=== PATIENT | female | born 1950 | race Caucasian/White ===

== ENCOUNTER 2023-01-14 22:27 | Emergency (ER) | payer MEDICARE, OTHER, SELFPAY ==
--- NOTE | ~2023-01-14 | XR_ITS ---
EXAMINATION: XR CHEST CLINICAL INFORMATION: Chest pain COMPARISON: None available. TECHNIQUE: Frontal view of the chest was obtained. FINDINGS: The heart and pulmonary vessels appear normal. No infiltrates, effusions or edema is seen. There is biconvex thoracolumbar scoliosis present. Degenerative changes are present in both shoulders. XR/XR chest 1V IMPRESSION: No acute intrathoracic disease.
--- NOTE | 2023-01-14 22:31 | ECG_ITS ---
Test Reason : chest pain Blood Pressure : / mmHG Vent. Rate : 051 BPM Atrial Rate : 051 BPM P-R Int : 146 ms QRS Dur : 076 ms QT Int : 416 ms P-R-T Axes : 081 000 039 degrees QTc Int : 383 ms Sinus bradycardia Otherwise normal ECG No previous ECGs available Referred By: Generic ED Physician Electronically Signed By:MYLA CARLSON
[2023-01-14 22:43] VITALS: BP 163/81; PULSE 51; RESP 16; TEMP 36.6; O2SAT 99; BMI 131.6
[2023-01-14 23:24] LABS: Hematocrit 38.4 % (37.0-47.0); Hemoglobin 12.9 g/dl (12.0-16.0); Mean Corpuscular HGB Conc 33.6 g/dl (31.0-35.0); Mean Corpuscular Hemoglobin 32.3 pg (27.0-33.0); Mean Platelet Volume 9.5 fL (9.4-12.3); Platelet Count 249 X10*3/uL (160-400); Red Cell Distribution Width 11.7 % (11.0-16.0); White Blood Count 3.9 X10*3/uL (4.8-10.8)
[2023-01-14 23:33] LABS: D Dimer High Sensitivity 185 NG/ML
[2023-01-14 23:40] LABS: Anion Gap 13 (12-20); Blood Urea Nitrogen 10 mg/dL (9-16); Calcium 9.7 mg/dL (8.4-10.2); Carbon Dioxide 28 mmol/L (22-29); Chloride 103 mmol/L (96-108); Creatinine Clr Calc Pharmacy -6.5; Estimated Glomerular Filt Rate > 60; Glucose Random 85 mg/dL (60-115); Magnesium 2.3 mg/dL (1.6-2.6); Potassium 4.3 mmol/L (3.3-5.1); Sodium 140 mmol/L (135-145)
[2023-01-14 23:43] LABS: COVID-19 Test Negative (Negative); IDNOW Serial# 08D9AD1C; IDNOW Serial# BCCEAD1C; Influenza A Negative (Negative); Influenza B2 Negative (Negative)
[2023-01-14 23:45] LABS: Troponin-I High Sensitivity 4.4 ng/L (<3.5-17.0)
[2023-01-14 23:48] VITALS: BP 139/69; PULSE 51; RESP 12; TEMP 36.3; O2SAT 99
--- NOTE | 2023-01-14 23:57 | ED_ITS ---
HPI - Chest Pain General Chief Complaint: Chest Pain Stated Complaint: ref. 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 been having left arm pain for some time with tingling sensation today she went to physical therapy for the 1st time had stretching exercises when she came back notice more tingling on the left arm , no weakness no headache no other deficits no recent trauma or fall Related Data Allergies Allergy/AdvReac Type Severity Reaction Status Date / Time codeine Allergy Unknown Verified 01/14/23 22:42 naproxen Allergy Unknown Verified 01/14/23 22:42 Penicillins Allergy Unknown Verified 01/14/23 22:42 shellfish derived Allergy Unknown Verified 01/14/23 22:42 Review of Systems Review of Systems: Yes all other systems are reviewed and are negative [facility] Social History Social History Advance Directives: No Advance Directives Information Provided: Yes Physical Exam Vital Signs: Vital Signs: Last Vital Signs Temp 97.4 F 01/14/23 23:48 Pulse 51 01/14/23 23:48 Resp 12 01/14/23 23:48 BP 139/69 01/14/23 23:48 Pulse Ox 99 01/14/23 23:48 O2 Del Method Room Air 01/14/23 23:48 BMI result Body Mass Index 131.6 Appearance: Alert. Oriented X3. No acute distress. ENT: Pharynx normal. Oral Mucosa moist Neck: Normal inspection. Neck supple. Diffuse tenderness inmid spine area CVS: Normal heart rate and rhythm. Pulses normal. Respiratory: No respiratory distress. Equal air entry bilateral, no wheezing/rales/rhonchi Abdomen: Soft and nontender. Bowel sounds are present, no mass palpable, no CVA tenderness Skin: Skin warm and dry. Normal skin color. Normal skin turgor. Extremities: No lower extremity edema. No calf tenderness Neuro: Oriented X 3. No motor deficit. No sensory deficit.No cerebellar signs , cranial nerves II-XII intact Medical Decision Making Medical Decision Making MDM Narrative: Clinically patient has cervical arthritis radiculopathy patient refusing any imaging no signs of significant cord compression no motor weakness noticed subjective paresthesia in left hand. Wrist to follow PCP including MRI of the cervical spine Lab Data [facility] Lab Attestation statement: I reviewed the patient's lab results. 01/14/23 23:16 01/14/23 23:16 Labs: Lab Results 01/14/23 01/14/23 01/14/23 Range/Units 23:16 23:16 23:16 WBC 3.9 L (4.8-10.8) X10*3/uL RBC 4.00 L (4.20-5.50) X10*6/uL Hgb 12.9 (12.0-16.0) g/dl Hct 38.4 (37.0-47.0) % MCV 96.0 (80.0-98.0) fL MCH 32.3 (27.0-33.0) pg MCHC 33.6 (31.0-35.0) g/dl RDW 11.7 (11.0-16.0) % Plt Count 249 (160-400) X10*3/uL MPV 9.5 (9.4-12.3) fL Absolute Nucleated RBC 0.000 (0.0-0.012) X10*3/uL Nucleated RBC % (auto) 0.0 (0.0-0.2) /100WBC D-Dimer High Sensitivty 185 NG/ML Sodium 140 (135-145) mmol/L Potassium 4.3 (3.3-5.1) mmol/L Chloride 103 (96-108) mmol/L Carbon Dioxide 28 (22-29) mmol/L Anion Gap 13 (12-20) BUN 10 (9-16) mg/dL Creatinine 0.72 (0.5-1.4) mg/dL Estim Creat Clear Calc -6.5 Estimated GFR > 60 Random Glucose 85 (60-115) mg/dL Calcium 9.7 (8.4-10.2) mg/dL Magnesium 2.3 (1.6-2.6) mg/dL Troponin I High Sens (<3.5-17.0) ng/L COVID-19 (JESSICA) (Negative) COVID-19 Clin Com Influenza Type A (DANDY) (Negative) Influenza Type B (DANDY) (Negative) Influenza A & B Note 01/14/23 01/14/23 01/14/23 Range/Units 23:16 23:16 23:16 WBC (4.8-10.8) X10*3/uL RBC (4.20-5.50) X10*6/uL Hgb (12.0-16.0) g/dl Hct (37.0-47.0) % MCV (80.0-98.0) fL MCH (27.0-33.0) pg MCHC (31.0-35.0) g/dl RDW (11.0-16.0) % Plt Count (160-400) X10*3/uL MPV (9.4-12.3) fL Absolute Nucleated RBC (0.0-0.012) X10*3/uL Nucleated RBC % (auto) (0.0-0.2) /100WBC D-Dimer High Sensitivty NG/ML Sodium (135-145) mmol/L Potassium (3.3-5.1) mmol/L Chloride (96-108) mmol/L Carbon Dioxide (22-29) mmol/L Anion Gap (12-20) BUN (9-16) mg/dL Creatinine (0.5-1.4) mg/dL Estim Creat Clear Calc Estimated GFR Random Glucose (60-115) mg/dL Calcium (8.4-10.2) mg/dL Magnesium (1.6-2.6) mg/dL Troponin I High Sens 4.4 (<3.5-17.0) ng/L COVID-19 (JESSICA) Negative (Negative) COVID-19 Clin Com See Note Influenza Type A (DANDY) Negative (Negative) Influenza Type B (DANDY) Negative (Negative) Influenza A & B Note See Note Discharge Plan Discharge Clinical Impression: Cervical radiculopathy Patient Disposition: Home, Self-Care Instructions: Cervical Radiculopathy (ED) Additional Instructions: Follow-up with your PCP for further evaluation including MRI of the neck Report to the ER if any hand weakness or worsening of the numbness
[2023-01-15 00:49] VITALS: PULSE 53; RESP 14; O2SAT 97
== END 2023-01-15 01:14 | disposition home or self-care (01) ==
PROVIDERS: Emergency Provider Internal Medicine; PCP Internal Medicine
DX: M54.12 Radiculopathy, cervical region (principal); R07.89 Other chest pain; M79.602 Pain in left arm; Z20.822 Contact with and (suspected) exposure to COVID-19; Z20.828 Contact with and (suspected) exposure to other viral communicable diseases; Z79.899 Other long term (current) drug therapy
CPT/HCPCS: 36415; 71045; 80048; 83735; 84484; 85027; 85379; 87502; 87635; 93005; 99283; 99285